=== PATIENT | male | born 1960 | race Caucasian/White ===

== ENCOUNTER → 2018-04-02 16:15 | Outpatient (CLI) | payer BC, SELFPAY ==
--- NOTE | 2018-04-02 16:21 | RAD_ITS ---
STUDY: X-RAY CHEST REASON FOR EXAM: Male, 57 years old. Positive PPD TECHNIQUE: Frontal view of the chest COMPARISON: None. FINDINGS: The lungs are clear. There are no pleural effusions. There is no pneumothorax. The heart is normal in size. The visualized osseous structures are within normal limits. RAD/Chest PA and Lateral IMPRESSION: Clear lungs. Electronically Signed: Mike Burroughs, at 19:44 EDT Tel , Service support ,
[2018-04-02 18:20] LABS: T4 Free Direct 1.05 ng/dL (0.76-1.46); Thyroid Stim Hormone (TSH) 1.82 uIU/mL (0.358-3.74)
== END ==
PROVIDERS: Family Provider Family Medicine; PCP Family Medicine; Visit Provider Family Medicine
DX: E04.1 Nontoxic single thyroid nodule (principal); R76.11 Nonspecific reaction to tuberculin skin test without active tuberculosis
CPT/HCPCS: 36415; 71046; 84439; 84443

== ENCOUNTER → 2018-04-04 14:58 | Outpatient (CLI) | payer BC, SELFPAY ==
--- NOTE | 2018-04-04 15:04 | US_ITS ---
STUDY: THYROID ULTRASOUND REASON FOR EXAM: Male, 57 years old. NODULE FELT BY DOCTOR HX OF POSITIVE PPD TECHNIQUE: Ultrasound evaluation of the thyroid was performed with real-time and static gallegos-scale imaging. COMPARISON: None. FINDINGS: RIGHT LOBE: The right lobe of the thyroid gland measures 4.1x1.5x1.6 cm. There is a homogeneous echotexture. There are no demonstrated solid, cystic or complex lesions. LEFT LOBE: The left lobe of the thyroid gland measures 4x1.5x2.1 cm. There is a homogeneous echotexture. There are no demonstrated solid, cystic or complex lesions. ISTHMUS: The isthmus measures 4mm. US/Thyroid IMPRESSION: Normal ultrasound examination of the thyroid. No visualized nodules were Electronically Signed: Javon Owens MD at 16:15 EDT , Service support ,
== END ==
PROVIDERS: Family Provider Family Medicine; PCP Family Medicine; Visit Provider Family Medicine
DX: E04.1 Nontoxic single thyroid nodule (principal)
CPT/HCPCS: 76536

== ENCOUNTER → 2018-05-20 06:00 | Outpatient (CLI) | payer BC, SELFPAY ==
[2018-05-20 06:08] LABS: Bacteria 0 SEEN /hpf (None Seen); Mucous, Urine 0 SEEN /hpf (<or=2+); Red Blood Cells-Urine 0 SEEN /hpf (0-5); White Blood Cells 0 SEEN /hpf (0-5)
[2018-05-20 07:05] LABS: Color, Urine Yellow (Yellow); Glucose, Dipstick Normal (Normal); Ketone-Dipstick Negative (Negative); Leukocyte Esterase-Dipstick Negative /ul (Negative); Nitrite-Dipstick Negative (Negative); Occult Blood-Urine 10 /ul (Negative); Protein-Dipstick Negative (Negative); Urine Bilirubin Dipstick Negative (Negative); Urine Clarity Clear (Clear); Urine Urobilinogen Normal (Normal)
[2018-05-20 07:12] LABS: Squamous Epithelial Cells - UA 0-5 SEEN /hpf (0-5)
[2018-05-20 07:42] LABS: ALB/GLOB Ratio 1.2 RATIO (0.9-2.4); AST(SGOT) 16 U/L (15-37); Alanine Aminotransfer ALT/SGPT 20 U/L (16-61); Albumin, Serum 3.8 g/dL (3.2-5.0); Alkaline Phosphatase 66 U/L (45-117); Anion Gap 5 (5-15); BUN 18 mg/dL (7-18); BUN/Creat Ratio 17.5 RATIO (10-20); Calcium,Total 8.6 mg/dL (8.5-10.1); Chloride 106 mmol/L (98-107); Cholesterol 191 mg/dL (200); Creatinine, Serum 1.03 mg/dL (0.70-1.30); EST Glomerular Filtration Rate 78 mL/min (>60); Est Glom Filt Rate - Afr Amer 95 mL/min (>60); Globulin 3.3 g/dL (2.2-4.2); Glucose 93 mg/dL (74-106); High Density Lipoprotein 42 mg/dL; PSA,Total - Annual Screen 3.45 ng/mL (0.00-4.00); Potassium 3.8 mmol/L (3.5-5.1); Protein, Total 7.1 g/dL (6.4-8.2); Sodium Level 140 mmol/L (136-145); Thyroid Stim Hormone (TSH) 1.45 uIU/mL (0.358-3.74); Triglycerides 137 mg/dL; Very Low Density Lipoprotein 27 mg/dL (5-40)
[2018-05-20 08:30] LABS: Absolute Lymphocyte Count 1.83 X10^3/ul (0.83-4.51); Absolute Neutrophil Count 2.9 X10^3/uL (2.0-7.7); Basophil# 0.03 X10^3/uL; Basophil% 0.5 % (0-1); Eosinophil# 0.33 X10^3/uL; Eosinophils% 5.9 % (0-5); Hematocrit 41.4 % (40-54); Hemoglobin 13.7 g/dl (13.0-16.5); Lymphocyte # 1.83 X10^3/ul (4.0); Lymphocyte % 32.9 % (19-41); Mean Corp Hgb Conc 33.1 g/gl (32-36); Mean Corpuscular Volume 87.5 fL (80-94); Mean Platelet Vol. 9.5 fl (6.2-12.0); Monocyte# 0.48 X10^3/uL; Monocyte% 8.6 % (0-10); Neutrophil # 2.89 X10^3/uL (2.7-7.7); Neutrophil % 51.9 % (47-70); Platelet Count 210 K/mm3 (150-450); RBC Distribution Width CV 13.7 % (11.6-14.6); RBC Distribution Width SD 43.7 fl (35.1-43.9); Red Blood Count 4.73 M/mm3 (4.6-6.2); White Blood Count 5.6 K/mm3 (4.4-11.0)
[2018-05-20 08:31] LABS: POSITIVE COUNT NO; POSITIVE DIFFERENTIAL NO; POSITIVE MORPHOLOGY NO
== END ==
PROVIDERS: Family Provider Family Medicine; PCP Family Medicine; Visit Provider Family Medicine
DX: Z00.00 Encounter for general adult medical examination without abnormal findings (principal); Z12.5 Encounter for screening for malignant neoplasm of prostate
CPT/HCPCS: 36415; 80053; 80061; 81001; 84153; 84443; 85025; G0103

== ENCOUNTER → 2018-12-04 16:56 | Outpatient (CLI) | payer BC, SELFPAY ==
--- NOTE | 2018-12-04 16:59 | RAD_ITS ---
HISTORY: Pain COMPARISON: None FINDINGS: XR right knee 3 views with weightbearing No fracture or acute disease. Degenerative arthritis with mild to moderate narrowing of the tibiofemoral medial compartment. The lateral joint space compartment and patellofemoral joint space appears preserved. Mild spurring of the intercondylar tibial spines. Mild spurring of the anterior superior margin of the patella at quadriceps insertion. No joint effusion. RAD/Knee 3 Views IMPRESSION: 1. Degenerative arthritis with mild to moderate narrowing of the tibiofemoral medial compartment. 2. No acute disease, right knee. at 0756 Reported and signed by: Chico Claudio MD Electronically Signed: Chico Claudio, at 7:55 EST Tel , Service support ,
--- NOTE | 2018-12-04 16:59 | RAD_ITS ---
HISTORY: Pain COMPARISON: None FINDINGS: XR left knee 3 views with weightbearing No fracture or acute disease. Degenerative arthritis with mild narrowing of the tibiofemoral medial compartment. The lateral compartment and patellofemoral joint space appear preserved. Mild spurring of the anterior spare margin of the patella at quadriceps insertion. No joint effusion. RAD/Knee 3 Views IMPRESSION: 1. Mild degenerative changes. 2. No acute disease, left knee. at 0800 Reported and signed by: Chico Claudio MD Electronically Signed: Chico Claudio, at 7:58 EST Tel , Service support ,
== END ==
PROVIDERS: Family Provider Family Medicine; PCP Family Medicine; Referring Provider Family Medicine; Visit Provider Family Medicine
DX: M17.0 Bilateral primary osteoarthritis of knee (principal)
CPT/HCPCS: 73562

== ENCOUNTER → 2020-04-15 08:36 | Outpatient (CLI) | payer BC, SELFPAY ==
[2020-04-15 10:01] LABS: Absolute Lymphocyte Count 1.43 X10^3/uL (0.83-4.51); Absolute Neutrophil Count 2.6 X10^3/uL (2.0-7.7); Basophil# 0.05 X10^3/uL; Basophil% 1.1 % (0-1); Eosinophil# 0.22 X10^3/uL; Eosinophils% 4.7 % (0-5); Hematocrit 41.3 % (40-54); Hemoglobin 13.4 g/dL (13.0-16.5); Lymphocyte # 1.43 X10^3/ul (4.0); Lymphocyte % 30.3 % (19-41); Mean Corp Hgb Conc 32.4 g/dL (32-36); Mean Corpuscular Hgb 29.4 pg (27.0-32.0); Mean Corpuscular Volume 90.6 fL (80-94); Mean Platelet Vol. 9.9 fl (6.2-12.0); Monocyte# 0.44 X10^3/uL; Monocyte% 9.3 % (0-10); NRBC Flagged by Analyzer 0 % (0-5); Neutrophil # 2.57 X10^3/uL (2.7-7.7); Neutrophil % 54.4 % (47-70); Platelet Count 227 K/mm3 (150-450); RBC Distribution Width CV 13.3 % (11.6-14.6); RBC Distribution Width SD 43.8 fl (35.1-43.9); Red Blood Count 4.56 M/mm3 (4.6-6.2); White Blood Count 4.7 K/mm3 (4.4-11.0)
[2020-04-15 10:25] LABS: ALB/GLOB Ratio 1.2 RATIO (0.9-2.4); AST(SGOT) 10 U/L (15-37); Alanine Aminotransfer ALT/SGPT 22 U/L (16-61); Alkaline Phosphatase 75 U/L (45-117); Anion Gap 6 (5-15); BUN 13 mg/dL (7-18); BUN/Creat Ratio 12.9 RATIO (10-20); Calcium,Total 8.9 mg/dL (8.5-10.1); Chloride 107 mmol/L (98-107); Cholesterol 193 mg/dL (200); Creatinine, Serum 1.01 mg/dL (0.70-1.30); EST Glomerular Filtration Rate 80 mL/min (>60); Est Glom Filt Rate - Afr Amer 96 mL/min (>60); Globulin 3.2 g/dL (2.2-4.2); Glucose 82 mg/dL (74-106); High Density Lipoprotein 51 mg/dL; PSA,Total - Annual Screen 4.81 ng/mL (0.00-4.00); Protein, Total 7.2 g/dL (6.4-8.2); Sodium Level 140 mmol/L (136-145); Thyroid Stim Hormone (TSH) 1.42 uIU/mL (0.358-3.74); Triglycerides 108 mg/dL; Very Low Density Lipoprotein 22 mg/dL (5-40)
== END ==
PROVIDERS: PCP Family Medicine; Referring Provider Family Medicine; Visit Provider Family Medicine
DX: Z00.00 Encounter for general adult medical examination without abnormal findings (principal); Z12.5 Encounter for screening for malignant neoplasm of prostate
CPT/HCPCS: 36415; 80053; 80061; 84153; 84443; 85025; G0103

== ENCOUNTER → 2020-11-21 13:19 | Outpatient (CLI) | payer BC, SELFPAY | PROVIDERS: PCP Family Medicine; Referring Provider Urology; Visit Provider Urology | DX: R97.20 Elevated prostate specific antigen [PSA] (principal) | CPT/HCPCS: 36415; 84153 ==

== ENCOUNTER → 2020-12-22 | Outpatient (CLI) | payer BC, SELFPAY ==
--- NOTE | 2020-12-22 | IMM_PTH ---
PATIENT: POOJA SOUTH LOC: [facility] U#:[id number] AGE/SX: 60/M ROOM: RE12/22/[address]: Dr. Hai Pizarro MD : 1960 BED: DIS: 12/22/2020 SPEC #: [id number] RECD: 12/23/20 12:32 STATUS: MAURICIO REQ #: [id number] HANG: 12/22/20 00:[address]: Hai Pizarro DEPT: IMMUNOHISTOCHEMISTRY RECD BY: Margo Rasmussen ENTERED: 12/23/20 12:34 SP TYPE: IMMUNO OTHR DR: Dr. Gustavo Garcia MD Tissues: A - PROSTATE RIGHT C - PROSTATE RIGHT D - PROSTATE LEFT F - PROSTATE LEFT Procedures: 34BE12 (add) P40 (add) 34BE12 (initial) [facility]YS[facility] [address] [address] SPECIMEN INFORMATION: Tissue Source: A - Right apex, C - Right base, D - Left apex, F - Left base Clinical Info: Elevated PSA Specimen Number: [id number] A, C, D & F CPT code: 05134, 24690 x7 METHODOLOGY: Deparaffinized sections of prefer/formalin-fixed tissue or PAP/DQ stained slides are incubated with monoclonal/polyclonal antibodies/oligonucleotide probes. Localization is made via biotin free immunoperoxidase method. Appropriate controls are performed and reacted as expected. Results on target cell population are indicated in the following table: RESULTS: ANTIBODY / CLONE RESULT Block A 34BE12 (34BE12) positive P40 (BC28) positive Block C 34BE12 (34BE12) negative P40 (BC28) negative Block D 34BE12 (34BE12) positive P40 (BC28) positive Block F 34BE12 (34BE12) negative P40 (BC28) negative These tests were developed and their performance characteristics determined by [facility]. They may not have been cleared or approved by the U.S. Food and Drug Administration. The FDA has determined that such clearance or approval is not necessary. The above immunohistochemical/dualISH markers are ordered and reviewed by the Pathologist. INTERPRETATION: A. Right prostate, apex, core biopsy: Benign prostatic tissue. C. Right prostate, base, core biopsy: Focal atypical small acinar proliferation. D. Left prostate, apex, core biopsy: Benign prostatic tissue. F. Left prostate, base, core biopsy: Adenocarcinoma. AM:brenda 12/26/2020
--- NOTE | 2020-12-22 08:00 | PROSBIL_PTH ---
PATIENT: POOJA SOUTH LOC: [facility] U#:[id number] AGE/SX: 60/M ROOM: RE12/22/[address]: Dr. Hai Pizarro MD : 1960 BED: DIS: 12/22/2020 SPEC #: [id number] RECD: 12/22/20 12:21 STATUS: MAURICIO RERamon #: [id number] HANG: 12/22/20 08:[address]: Hai Pizarro DEPT: SURGICAL PATHOLOGY RECD BY: Mona De La Rosa ENTERED: 12/22/20 13:06 SP TYPE: PROST BX JAMI DR: Dr. Gustavo Garcia MD Tissues: A - PROSTATE RIGHT B - PROSTATE RIGHT C - PROSTATE RIGHT D - PROSTATE LEFT E - PROSTATE LEFT F - PROSTATE LEFT Procedures: PROSTATE BX HEADER OPERATION: Prostate biopsy PRE-OP DIAGNOSIS: Elevated PSA TISSUE SUBMITTED: A - Right apex, B - Right mid, C - Right base, D - Left apex, E - Left mid, F - Left base MICROSCOPIC DIAGNOSIS A. Right prostate, apex, core biopsy: Focal glandular atrophy. See comment. B. Right prostate, mid, core biopsy: Focal high-grade prostatic intraepithelial neoplasia (HGPIN). Minimal chronic inflammation. C. Right prostate, base, core biopsy: Focal atypical acinar proliferation. See comment. D. Left prostate, apex, core biopsy: Focal high-grade prostatic intraepithelial neoplasia (HGPIN). See comment. E. Left prostate, mid, core biopsy: Focal high-grade prostatic intraepithelial neoplasia (HGPIN). F. Left prostate, base, core biopsy: Adenocarcinoma. Lynnette grade: 6 (3+3) Cores involved: 1 out of 2 cores Tissue involved: <5% Greatest tumor length: 1.5 mm See comment. AM:brenda 12/23/2020 COMMENT A, C, D & F - Immunohistochemistry ([id number]) supports the above diagnosis. MICROSCOPIC DESCRIPTION Slides are reviewed. GROSS DESCRIPTION A - Received is one container designated prostate, right apex. The specimen consists of one elongated fragment of light gomez-white soft tissue measuring 1.5 cm in length and 0.1 cm in diameter. The specimen is totally submitted in one cassette. B - Received is one container designated prostate, right mid. The specimen consists of two elongated fragments of light gomez-white soft tissue each measuring 1 cm in length and 0.1 cm in diameter. The specimen is totally submitted in one cassette. C - Received is one container designated prostate, right base. The specimen consists of two elongated fragments of light gomez-white soft tissue each measuring 1.5 cm in length and 0.1 cm in diameter. The specimen is totally submitted in one cassette. D - Received is one container designated prostate, left apex. The specimen consists of one elongated fragment of light gomez-white soft tissue measuring 1 cm in length and 0.1 cm in diameter. The specimen is totally submitted in one cassette. E - Received is one container designated prostate, left mid. The specimen consists of two elongated fragments of light gomez-white soft tissue each measuring 1.5 cm in length and 0.1 cm in diameter. The specimen is totally submitted in one cassette. F - Received is one container designated prostate, left base. The specimen consists of two elongated fragments of light gomez-white soft tissue each measuring 1.5 cm in length and 0.1 cm in diameter. The specimen is totally submitted in one cassette. / AM:brenda 12/22/20 TC:0 CPT: 55859 x6
== END | disposition home or self-care (01) ==
LOC: LABSPEC 12:29
PROVIDERS: PCP Family Medicine; Referring Provider Urology; Visit Provider Urology
DX: R97.20 Elevated prostate specific antigen [PSA] (principal)
CPT/HCPCS: 88305; 88341; 88342; G0416

== ENCOUNTER → 2021-01-06 10:24 | Outpatient (CLI) | payer BC, SELFPAY ==
--- NOTE | 2021-01-06 10:26 | NM_ITS ---
CLINICAL: 60-year-old male with reported history of recent diagnosis of primary prostate carcinoma. WHOLE BODY 99m Tc MDP RADIONUCLIDE BONE SCINTIGRAPHY COMPARISON: None available FINDINGS: Following the intravenous administration of presumably 25.0 mCi of 99m Tc MDP via the the apparent right antecubital fossa, whole body bone images reveal: 1. Increased radiopharmaceutical concentration is identified in the acromioclavicular compartment of the right shoulder, the visualized right wrist, both hands, medial tibial compartment of the bilateral knees. 2. The remaining skeletal structures are scintigraphically unremarkable with normal-appearing renal images and urinary bladder activity identified. NM/Bone Scan Whole Body IMPRESSION: 1. The increase in radiopharmaceutical concentration identified in the right shoulder, right wrist, bilateral hands, right and left knees is most consistent with degenerative arthritis. 2. There is no definitive typical scintigraphic evidence of diffuse axial skeletal metastatic disease on the current examination. Electronically Signed: Farhat Romo DO at 8:08 EST Tel , Service support ,
== END ==
LOC: NM 10:25
PROVIDERS: PCP Family Medicine; Referring Provider Urology; Visit Provider Urology
DX: C61 Malignant neoplasm of prostate (principal)
CPT/HCPCS: 78306

== ENCOUNTER → 2021-01-20 17:26 | Outpatient (CLI) | payer BC, SELFPAY ==
--- NOTE | 2021-01-20 17:34 | MRI_ITS ---
STUDY: MR PELVIS WITH AND WITHOUT CONTRAST (PROSTATE) REASON FOR EXAM: Male, 60 years old. Prostate cancer TECHNIQUE: Standardized multiparametric prostate MRI with T1, T2, DWI/ADC sequences were obtained in 3 orthogonal planes, and dynamic contrast enhancement sequences. 17 ml of dotarem contrast material was administered intravenously for the contrast portion of the examination. COMPARISON: Bone scan 01/06/2021 FINDINGS: The prostate volume measures 35 mm3. The contours of the prostate gland are smooth. There is not significant mass effect on the bladder base. The transition zone is heterogenous. PI-RADS DWI score 4 - Focal markedly hypointense on ADC and markedly hyperintense on high b-value DWI; < 1.5 cm on axial. PI-RADS T2W score 4 - Non-circumscribed (left anterior mid transitional zone), homogeneous, moderately hypointense, and <1.5 cm (1.0 x 1.1 cm) in greatest dimension. Contrast enhancement (+) Focal, earlier or contemporaneous with enhancement of adjacent normal prostatic tissues, and corresponding to a suspicious finding on T2WI and/or DWI. The peripheral zone is heterogenous. PI-RADS DWI score 2 - Linear/wedge shaped hypointense on ADC and/or linear/wedge shaped hyperintense on high b-value DWI. PI-RADS T2W score 2 - Linear, wedge-shaped, or diffuse mild hypointensity, usually with indistinct margin. Contrast enhancement no early or contemporaneous enhancement; or diffuse multifocal enhancement NOT corresponding to a focal finding on T2W and/or DWI or focal enhancement responding to a lesion demonstrating features of BPH onT2WI (including features of extruded BPH in the PZ). The seminal vesicles demonstrate normal margins and T2 signal pattern. No mass lesion or invasion depicted. The rectoprostatic angles are normal. Urinary bladder is normal without wall thickening. The vascular structures of the are normal. The visualized hollow viscus structures are normal. Small fat-containing left inguinal hernia. No bone marrow edema or mass lesion depicted. MRI/Pelvis W/WO Contrast IMPRESSION: 1. PIRADS v2.1 2019 -- 4 - High (clinically significant cancer is likely). Electronically Signed: Chente Lim MD ([place]) at 14:37 EST , Service support ,
== END ==
PROVIDERS: PCP Family Medicine; Referring Provider Radiology Radiation Oncology; Visit Provider Radiology Radiation Oncology
DX: C61 Malignant neoplasm of prostate (principal)
CPT/HCPCS: 72197

== ENCOUNTER 2021-02-15 07:21 | Day surgery (SDC) | payer BC, SELFPAY ==
[2021-02-15] VITALS (7 sets, daily range): BP systolic 109–129; BP diastolic 73–90; PULSE 51–57; RESP 16; TEMP 36.1–37.1; O2SAT 94–100; BMI 28.5
--- NOTE | 2021-02-15 07:44 | PCM.HP.STD ---
Problem List (1) Prostate cancer Status: Acute History of Present Illness Date of Admission: 02/15/21 Chief Complaint: Prostate cancer The patient is a 60 year old male with prostate cancer plan to place gold markers and spacer gel matrix. Past Medical History Allergies No Known Allergies Allergy (Verified 02/09/21 10:03) Home Medications: Ambulatory Orders Medication Instructions Recorded Acetaminophen [Tylenol Extra 500 - 1,000 mg PO Q6H PRN PRN 02/09/21 Strength] Aspirin E.C. [Ecotrin] 325 mg PO Q4H PRN PRN 02/09/21 Meloxicam [Mobic] 15 mg PO PRN PRN 02/09/21 Surgical History: no surgical history Smoking Status: Never smoker Tobacco Use: Non-smoker Review of Systems Constitutional: Denies: Chills, Fever, Weight Change HEENT: Denies: Head Aches, Sinus Congestion, Sinus Drainage Cardiovascular: Denies: Chest Pain, Palpitations Respiratory: Denies: Cough, Shortness of breath at rest, Sputum production Gastrointestinal: Denies: Abdominal Pain, Nausea, Vomiting Genitourinary: Denies: Dysuria Musculoskeletal: Denies: Joint Pain, Joint Tenderness Skin: Denies: Rash, Wounds Neurological: Denies: Numbness, Tingling, Focal weakness Psychiatric: Denies: Anxiety, Depression, Homicidal Ideations, Suicidal Ideations Hematologic/ Lymphatic: Denies: Easy Bruising, Easy Bleeding VTE Information - Inpt Only VTE Present on Admission: No - Physical Exam Vitals/I&O's: Vital Signs Temp Pulse Resp BP Pulse Ox 98.8 F 57 L 16 129/90 H 100 02/15/21 07:41 02/15/21 07:41 02/15/21 07:41 02/15/21 07:41 02/15/21 07:41 Oxygen Delivery Method Room Air Weight: 85 kg Body Mass Index (BMI) 28.5 General: Alert, Oriented x3, Cooperative HEENT: Atraumatic, PERRLA, EOMI, Normocephalic Neck: Supple, No JVD, Negative Carotid Bruits Lungs: Clear to auscultation, Normal air movement Cardiovascular: Regular rate, No murmurs Abdomen: Bowel Sounds Present, Soft, Non Tender Extremities: No edema, Capillary Refill Less than 3 Seconds Skin: No rashes, No breakdown Musculoskeletal: No Tenderness to Palpation of Joints or Extremities Neurological: Cranial nerves II-XII grossly intact Psych/Mental Status: Normal Affect, Appropriate Microbiology Past 72 Hours 02/14/21 16:18 Interface Orders SARS-CoV-2 Antigen (Rapid) - Final Current Medications Cefazolin Sodium 2 gm/ Sodium (Chloride) 110 mls @ 150 mls/hr IV PREOP ONE Stop: 02/15/21 09:53 Assessment/Plan All Active Problems Prostate cancer (Acute) Plan to proceed with placement of gold markers and spacer gel matrix
--- NOTE | 2021-02-15 07:48 | DCINST_ITS ---
Discharge Diet: Light diet - advance as tolerated Discharge Activity: Return to Normal Activity Allergies/Adverse Reactions: Allergies No Known Allergies Allergy (Verified 02/09/21 10:03) Medications to take at Discharge Acetaminophen [Tylenol Extra Strength] 500 - 1,000 mg PO Q6H PRN PRN 02/09/21 Aspirin E.C. [Ecotrin] 325 mg PO Q4H PRN PRN 02/09/21 Meloxicam [Mobic] 15 mg PO PRN PRN 02/09/21 Primary Care Physician: Gustavo Garcia MD [Primary Care Provider] - Test Results: Test results from this visit will be discussed in further detail at your follow- up appointment, if applicable. Please Follow Up With: Hai Pizarro MD When: in 2 weeks, please call to make an appointment.
[2021-02-15] MEDS: Lactated Ringers 1,000 ML 100 ML IV (07:58)
[2021-02-15] MEDS: Cefazolin 2 GM in 0.9% Normal Saline 100 ML IV (09:23)
--- NOTE | 2021-02-15 09:44 | PCM.OPRPT ---
Problem List (1) Prostate cancer Status: Acute Report of Operation Date of Procedure: 02/15/21 Pre-Operative Diagnosis: Prostate cancer Post-Operative Diagnosis: Same Surgery/Procedure Performed:: Ultrasound-guided placement of gold fiducial markers and spacer organ at risk gel matrix Description of Surgical Findings:: Patient was taken back to the operating room, after induction of anesthesia, he was placed in dorsolithotomy position. The patient had a bowel prep preoperatively. He was given IV antibiotics preoperatively. He underwent a timeout procedure. He was marked and the procedure was reviewed with the operating room staff. Once he was in dorsolithotomy position. The genitals and perineum were prepped and draped in the usual sterile fashion. I then introduced a biplanar ultrasound probe into the rectum and performed ultrasonography on the prostate. The prostate seminal vesicles, the base, the mid prostate, the apex were identified. The Denonvilliers' fascia was also identified. I first advanced the first marker in the patient's right side to the mid prostate and deployed the first research and development specialist. The second research and development specialist was then advanced under ultrasound guidance to the patient's left mid prostate . And finally the third research and development specialist was advanced of the prostate left apex and deployed under ultrasound guidance. All 3 markers were confirmed to be present within the prostate on ultrasonography. I then introduced a biplanar ultrasound probe into the rectum and performed ultrasonography and identified the Denonvilliers' fascia the prostate mid base and apex and seminal vesicles. The spacer gel mix was then prepared on the back table per manufactures instruction. Under ultrasound guidance in the midline perineum a bevel needle down we advanced through the perineum below the prostate into the space of Denonvilliers' fascia. This space which could be identified by ultrasound with a bright white layer between the prostate and the rectum. I then injected a puff of normal saline to identify the space further. After I confirmed that the needle was in the correct space in the mid prostate and the space of Denonvilliers' fascia between the rectum and the prostate. Then over the course of 15 seconds the gel matrix was injected slowly there was nice separation between the prostate and the rectum at the gel matrix was injected. The position of the gel matrix was confirmed by ultrasound. Then the injection needle was removed intact. Patient's perineum was cleaned patient was taken out of stirrups and then taken back to the PACU in good condition. Type of Anesthesia:: General Drains: none - Admit VTE Documentation VTE Present on Admission: No VTE Mechan Device Prophylaxis: SCD's
== END 2021-02-15 11:15 | disposition home or self-care (01) ==
LOC: SDC 07:22 → AC 07:22
PROVIDERS: PCP Family Medicine; Referring Provider Urology; Visit Provider Urology
PROC: (CPT 55874; principal; 2021-02-15 09:10)
DX: C61 Malignant neoplasm of prostate (principal); Z20.822 Contact with and (suspected) exposure to COVID-19; Z79.82 Long term (current) use of aspirin; Z79.1 Long term (current) use of non-steroidal anti-inflammatories (NSAID)
CPT/HCPCS: 00902; 55874; 55876; 87426; C9803; J7120; J2405

== ENCOUNTER → 2021-02-28 14:24 | Outpatient (CLI) | payer BC, SELFPAY ==
[2021-02-15 07:41] VITALS: BMI 28.5
[2021-02-28 15:21] LABS: Absolute Lymphocyte Count 2.01 X10^3/uL (0.83-4.51); Absolute Neutrophil Count 3.2 X10^3/uL (2.0-7.7); Basophil# 0.06 X10^3/uL; Eosinophil# 0.21 X10^3/uL; Eosinophils% 3.5 % (0-5); Hematocrit 41.6 % (40-54); Hemoglobin 13.8 g/dL (13.0-16.5); Lymphocyte # 2.01 X10^3/ul (4.0); Lymphocyte % 33.7 % (19-41); Mean Corp Hgb Conc 33.2 g/dL (32-36); Mean Corpuscular Hgb 29.7 pg (27.0-32.0); Mean Corpuscular Volume 89.5 fL (80-94); Mean Platelet Vol. 9.8 fl (6.2-12.0); Monocyte# 0.49 X10^3/uL; Monocyte% 8.2 % (0-10); NRBC Flagged by Analyzer 0 % (0-5); Neutrophil # 3.17 X10^3/uL (2.7-7.7); Neutrophil % 53.3 % (47-70); Platelet Count 242 K/mm3 (150-450); RBC Distribution Width CV 13.2 % (11.6-14.6); RBC Distribution Width SD 42.7 fl (35.1-43.9); Red Blood Count 4.65 M/mm3 (4.6-6.2)
[2021-02-28 15:43] LABS: Creatinine, Serum 1.01 mg/dL (0.70-1.30); EST Glomerular Filtration Rate 79 mL/min (>60); Est Glom Filt Rate - Afr Amer 96 mL/min (>60)
== END ==
PROVIDERS: PCP Family Medicine; Referring Provider Radiology Radiation Oncology; Visit Provider Radiology Radiation Oncology
DX: Z01.812 Encounter for preprocedural laboratory examination (principal); C61 Malignant neoplasm of prostate
CPT/HCPCS: 36415; 82565; 84153; 85025

== ENCOUNTER → 2021-03-01 13:46 | Outpatient (CLI) | payer BC, SELFPAY ==
[2021-02-15 07:41] VITALS: BMI 28.5
--- NOTE | 2021-03-01 13:53 | CT_ITS ---
STUDY: CT PELVIS WITH CONTRAST REASON FOR EXAM: Male, 60 years old. ca prostate RADIATION DOSAGE (If Supplied By Facility): CTDIvol = ( 22.27 ) mGy, DLP = ( 1341.89 ) mGycm TECHNIQUE: Transaxial imaging of the pelvis was performed with oral contrast. IV 100ML ISOVUE 300 was administered intravenously. Images were obtained in the prone and supine position. Individualized dose optimization techniques were used for this CT. COMPARISON: 01/20/21 MRI pelvis. FINDINGS: Urinary bladder and ureters contain IV contrast. Prostate mildly enlarged with mild adjacent edema, contain several radiation seeds. Tubular increased density structure in the penis probably a prosthetic. Small left inguinal hernia contains fat but no bowel. No acute osseous abnormality. No obstruction or inflammation of the visualized loops of bowel. Visualized vascular structures unremarkable. 3.0 x 1.9 cm subcutaneous cyst left lateral buttocks. No adenopathy. CT/CT Pelvis W/CONT Therapy IMPRESSION: Mild edema adjacent to a mildly enlarged prostate gland. Electronically Signed: Kaden Billy MD at 6:05 EDT Tel , Service support ,
== END ==
PROVIDERS: PCP Family Medicine; Referring Provider Radiology Radiation Oncology; Visit Provider Radiology Radiation Oncology
DX: C61 Malignant neoplasm of prostate (principal)
CPT/HCPCS: 51600; 72193; Q9967

== ENCOUNTER → 2021-03-31 12:12 | Outpatient (CLI) | payer BC, SELFPAY ==
[2021-02-15 07:41] VITALS: BMI 28.5
[2021-03-31 15:09] LABS: Absolute Lymphocyte Count 1.21 X10^3/uL (0.83-4.51); Absolute Neutrophil Count 2.6 X10^3/uL (2.0-7.7); Basophil# 0.05 X10^3/uL; Basophil% 1.1 % (0-1); Eosinophil# 0.23 X10^3/uL; Hematocrit 41.9 % (40-54); Hemoglobin 13.6 g/dL (13.0-16.5); Lymphocyte # 1.21 X10^3/ul (0.83-4.51); Lymphocyte % 26.5 % (19-41); Mean Corp Hgb Conc 32.5 g/dL (32-36); Mean Corpuscular Hgb 29.3 pg (27.0-32.0); Mean Corpuscular Volume 90.3 fL (80-94); Mean Platelet Vol. 9.9 fl (6.2-12.0); Monocyte# 0.49 X10^3/uL; Monocyte% 10.7 % (0-10); NRBC Flagged by Analyzer 0 % (0-5); Neutrophil # 2.57 X10^3/uL (2.7-7.7); Neutrophil % 56.3 % (47-70); Platelet Count 189 K/mm3 (150-450); RBC Distribution Width CV 13.5 % (11.6-14.6); RBC Distribution Width SD 43.4 fl (35.1-43.9); Red Blood Count 4.64 M/mm3 (4.6-6.2); White Blood Count 4.6 K/mm3 (4.4-11.0)
== END ==
PROVIDERS: PCP Family Medicine; Referring Provider Radiology Radiation Oncology; Visit Provider Radiology Radiation Oncology
DX: C61 Malignant neoplasm of prostate (principal)
CPT/HCPCS: 36415; 85025

== ENCOUNTER → 2021-04-18 08:42 | Outpatient (CLI) | payer BC, SELFPAY ==
[2021-02-15 07:41] VITALS: BMI 28.5
[2021-04-18 10:15] LABS: Absolute Lymphocyte Count 0.72 X10^3/uL (0.83-4.51); Absolute Neutrophil Count 2.8 X10^3/uL (2.0-7.7); Basophil# 0.03 X10^3/uL; Basophil% 0.7 % (0-1); Eosinophil# 0.29 X10^3/uL; Eosinophils% 6.8 % (0-5); Hematocrit 40.9 % (40-54); Hemoglobin 13.4 g/dL (13.0-16.5); Lymphocyte # 0.72 X10^3/ul (0.83-4.51); Lymphocyte % 16.8 % (19-41); Mean Corp Hgb Conc 32.8 g/dL (32-36); Mean Corpuscular Volume 88.5 fL (80-94); Mean Platelet Vol. 9.7 fl (6.2-12.0); Monocyte# 0.44 X10^3/uL; Monocyte% 10.3 % (0-10); NRBC Flagged by Analyzer 0 % (0-5); Neutrophil # 2.77 X10^3/uL (2.7-7.7); Neutrophil % 64.7 % (47-70); Platelet Count 206 K/mm3 (150-450); RBC Distribution Width CV 14.1 % (11.6-14.6); RBC Distribution Width SD 45.1 fl (35.1-43.9); Red Blood Count 4.62 M/mm3 (4.6-6.2); White Blood Count 4.3 K/mm3 (4.4-11.0)
[2021-04-18 10:58] LABS: ALB/GLOB Ratio 1.2 RATIO (0.9-2.4); AST(SGOT) 15 U/L (15-37); Alanine Aminotransfer ALT/SGPT 23 U/L (16-61); Albumin, Serum 3.8 g/dL (3.2-5.0); Alkaline Phosphatase 64 U/L (45-117); Anion Gap 6 (5-15); BUN 17 mg/dL (7-18); BUN/Creat Ratio 18.6 RATIO (10-20); Calcium,Total 8.8 mg/dL (8.5-10.1); Chloride 109 mmol/L (98-107); Creatinine, Serum 0.91 mg/dL (0.70-1.30); EST Glomerular Filtration Rate 89 mL/min (>60); Est Glom Filt Rate - Afr Amer 108 mL/min (>60); Globulin 3.3 g/dL (2.2-4.2); Glucose 104 mg/dL (74-106); Potassium 3.7 mmol/L (3.5-5.1); Protein, Total 7.1 g/dL (6.4-8.2); Sodium Level 140 mmol/L (136-145); T4 Free Direct 0.93 ng/dL (0.76-1.46); Thyroid Stim Hormone (TSH) 1.07 uIU/mL (0.358-3.74)
[2021-04-19 08:54] LABS: Hemoglobin A1c 5.5 % (3.8-5.6)
[2021-04-20 16:59] LABS: Anti-Thyroglobulin AB < 1.0 IU/mL (0.0-0.9); Thyroglobulin, Serum Qt. 8.4 ng/mL (1.4-29.2); Thyroid Peroxidase AB < 9 IU/mL (0-34)
== END ==
PROVIDERS: PCP Family Medicine; Referring Provider Family Medicine; Visit Provider Family Medicine
DX: E04.1 Nontoxic single thyroid nodule (principal); R73.09 Other abnormal glucose
CPT/HCPCS: 36415; 80053; 83036; 84432; 84439; 84443; 85025; 86376; 86800

== ENCOUNTER → 2021-04-25 12:27 | Outpatient (CLI) | payer BC, SELFPAY ==
[2021-02-15 07:41] VITALS: BMI 28.5
--- NOTE | 2021-04-25 12:28 | US_ITS ---
STUDY: THYROID ULTRASOUND REASON FOR EXAM: Male, 60 years old. thyroid nodule TECHNIQUE: Ultrasound evaluation of the thyroid was performed with real-time and static gallegos-scale imaging. COMPARISON: None. FINDINGS: RIGHT LOBE: The right lobe of the thyroid gland measures 4.3 x 1.4 x 1.7 cm. There is a homogeneous echotexture. There are no demonstrated solid, cystic or complex lesions. LEFT LOBE: The left lobe of the thyroid gland measures 3.9 x 1.3 x 1.2 cm. There is a homogeneous echotexture. There are no demonstrated solid, cystic or complex lesions. ISTHMUS: The isthmus measures 3 mm . The regional lymph nodes are normal. US/Thyroid IMPRESSION: No evidence of underlying thyroid nodule. Electronically Signed: Sonny Cedeño DO at 13:04 EDT , Service support ,
== END ==
PROVIDERS: PCP Family Medicine; Referring Provider Family Medicine; Visit Provider Family Medicine
DX: E04.1 Nontoxic single thyroid nodule (principal)
CPT/HCPCS: 76536

== ENCOUNTER → 2021-08-22 12:24 | Outpatient (CLI) | payer BC, SELFPAY | PROVIDERS: PCP Family Medicine; Referring Provider Urology; Visit Provider Urology | DX: R97.20 Elevated prostate specific antigen [PSA] (principal) | CPT/HCPCS: 36415; 84153 ==

== ENCOUNTER 2022-02-19 12:40 | Outpatient (CLI) | payer BC, SELFPAY | END 2022-02-19 23:59 | disposition home or self-care (01) | PROVIDERS: PCP Family Medicine; Visit Provider Urology | DX: C61 Malignant neoplasm of prostate (principal) | CPT/HCPCS: 36415; 84153 ==

== ENCOUNTER → 2022-08-22 | Outpatient (CLI) | payer BC, SELFPAY ==
[2022-08-22 17:31] LABS: PSA,Total- Diagnostic 1.77 ng/mL (0.0-4.0)
== END | disposition home or self-care (01) ==
LOC: LAB 16:26
PROVIDERS: PCP Family Medicine; Visit Provider Urology
DX: C61 Malignant neoplasm of prostate (principal)
CPT/HCPCS: 36415; 84153

== ENCOUNTER → 2023-02-21 | Outpatient (CLI) | payer BC, SELFPAY ==
[2023-02-21 18:50] LABS: PSA,Total- Diagnostic 1.12 ng/mL (0.0-4.0)
== END | disposition home or self-care (01) ==
LOC: MTLAB 16:32
PROVIDERS: PCP Family Medicine; Referring Provider Registered Nurse; Visit Provider Registered Nurse
DX: C61 Malignant neoplasm of prostate (principal)
CPT/HCPCS: 36415; 84153

== ENCOUNTER → 2023-06-04 | Outpatient (CLI) | payer BC, SELFPAY ==
--- NOTE | 2023-06-04 16:10 | RAD_ITS ---
EXAM: XR RIGHT SHOULDER COMPLETE, 2 OR MORE VIEWS CLINICAL INDICATION: Right shoulder injury TECHNIQUE: Two or more views of the right shoulder. COMPARISON: No relevant prior studies available. FINDINGS: BONES/JOINTS: Unremarkable. No acute fracture. No subluxation. Normal alignment. Preservation of the joint space. No sclerotic or destructive changes observed. SOFT TISSUES: Unremarkable. No soft tissue swelling or gas. No radiopaque foreign body. RAD/Shoulder min 2 Views IMPRESSION: Negative right shoulder x-rays. Electronically Signed: Alejandro Delvalle MD at 22:32 EDT ,
== END | disposition home or self-care (01) ==
LOC: MTRAD 16:08
PROVIDERS: PCP Family Medicine; Referring Provider Family Medicine; Visit Provider Family Medicine
DX: S49.91XA Unspecified injury of right shoulder and upper arm, initial encounter (principal); X58.XXXA Exposure to other specified factors, initial encounter
CPT/HCPCS: 73030

== ENCOUNTER → 2023-08-30 | Outpatient (CLI) | payer BC, SELFPAY ==
[2023-08-30 17:35] LABS: PSA,Total- Diagnostic 1.22 ng/mL (0.0-4.0)
== END | disposition home or self-care (01) ==
LOC: LAB 16:31
PROVIDERS: PCP Family Medicine; Referring Provider Registered Nurse; Visit Provider Registered Nurse
DX: C61 Malignant neoplasm of prostate (principal)
CPT/HCPCS: 36415; 84153

== ENCOUNTER → 2024-02-18 | Outpatient (CLI) | payer BC, SELFPAY ==
--- NOTE | 2024-02-18 12:59 | EKG12_ITS ---
Test Reason : PREOP Blood Pressure : / mmHG Vent. Rate : 053 BPM Atrial Rate : 053 BPM P-R Int : 160 ms QRS Dur : 084 ms QT Int : 430 ms P-R-T Axes : 052 013 041 degrees QTc Int : 403 ms Sinus bradycardia with Premature atrial complexes in a pattern of bigeminy Otherwise normal ECG Confirmed by Alejandro Torres ([id number]), staff editor DAVID PARKER ([id number]) on 02/19/2024 9:42:49 AM Referred By: Bruce Sarmiento Confirmed By:Alejandro Torres
[2024-02-18 13:38] LABS: Absolute Lymphocyte Count 1.38 X10^3/uL (0.83-4.51); Absolute Neutrophil Count 3.2 X10^3/uL (2.0-7.7); Basophil# 0.03 X10^3/uL; Basophil% 0.6 % (0-1); Eosinophil# 0.09 X10^3/uL; Eosinophils% 1.8 % (0-5); Hematocrit 39.3 % (40-54); Hemoglobin 13.1 g/dL (13.0-16.5); Lymphocyte # 1.38 X10^3/ul (0.83-4.51); Lymphocyte % 27.2 % (19-41); Mean Corp Hgb Conc 33.3 g/dL (32-36); Mean Corpuscular Hgb 29.8 pg (27.0-32.0); Mean Corpuscular Volume 89.3 fL (80-94); Mean Platelet Vol. 9.4 fl (6.2-12.0); Monocyte# 0.38 X10^3/uL; Monocyte% 7.5 % (0-10); NRBC Flagged by Analyzer 0 % (0-5); Neutrophil # 3.19 X10^3/uL (2.7-7.7); Neutrophil % 62.7 % (47-70); Platelet Count 233 K/mm3 (150-450); RBC Distribution Width CV 13.7 % (11.6-14.6); RBC Distribution Width SD 44.6 fl (35.1-43.9); White Blood Count 5.1 K/mm3 (4.4-11.0)
[2024-02-18 13:57] LABS: Hemoglobin A1c 5.3 % (3.8-5.6)
[2024-02-18 14:06] LABS: Anion Gap 7 (5-15); BUN 12 mg/dL (7-18); BUN/Creat Ratio 12.8 RATIO (10-20); Calcium,Total 9.3 mg/dL (8.5-10.1); Chloride 106 mmol/L (98-107); Creatinine, Serum 0.94 mg/dL (0.70-1.30); EST Glomerular Filtration Rate 86 mL/min (>60); Est Glom Filt Rate - Afr Amer 104 mL/min (>60); Glucose 101 mg/dL (74-106); Sodium Level 140 mmol/L (136-145)
== END | disposition home or self-care (01) ==
PROVIDERS: PCP Family Medicine; Referring Provider Physician Assistant; Visit Provider Physician Assistant
DX: Z01.810 Encounter for preprocedural cardiovascular examination (principal)
CPT/HCPCS: 36415; 80048; 83036; 85025; 93005

== ENCOUNTER → 2024-02-20 | Outpatient (CLI) | payer BC, SELFPAY ==
[2024-02-20 17:30] LABS: PSA,Total- Diagnostic 1.04 ng/mL (0.0-4.0)
== END | disposition home or self-care (01) ==
LOC: LAB 16:25
PROVIDERS: PCP Family Medicine; Visit Provider Nurse Practitioner
DX: C61 Malignant neoplasm of prostate (principal)
CPT/HCPCS: 36415; 84153

== ENCOUNTER → 2024-09-16 | Outpatient (CLI) | payer BC, SELFPAY ==
[2024-09-16 18:20] LABS: PSA,Total- Diagnostic 0.57 ng/mL (0.0-4.0)
--- OUTSIDE RECORDS SUMMARY | 2024-09-16 19:24 | XMS RPT_ITS | CCD ---
Author Organization [facility] Inform ion Partnership [facility] Care Team Providers Care Soaker Soda Worker Name Role Phone Unavailable Primary Care Provider STAR Rodriguez Primary Care Unavailable Medications Current Medications Medication Drug Class(es) Dates Sig (Normalized) Sig (Original) permethrin 50 mg/ml topical cream (1 source) Pyrethroid Start: 06-22-2022 End: 06-22-2022 permethrin (ELIMITE) 5 % cream Apply 1 application to affected area one time only for 1 dose. massage into skin from neck to feet, leave on 8-12hrs, wash off; Info: repeat 2wks if live mites persist. Itching may persist after effective treatment. 60 g 1 06/22/2022 06/22/2022 Active Comment on above: Apply 1 application to affected area one time only for 1 dose. massage into skin from neck to feet, leave on 8-12hrs, wash off; Info: repeat 2wks if live mites persist. Itching may persist after effective treatment. predniSONE 20 mg oral tablet (1 source) Start: 06-22-2022 End: 06-27-2022 take 2 tablets by mouth once daily predniSONE (DELTASONE) 20 mg tablet Take 2 tablets by mouth once daily for 5 days. 10 tablet 0 06/22/2022 06/27/2022 Active Comment on above: Take 2 tablets by [facility] once daily for 5 days. Completed/Discontinued Medications Medication Drug Class(es) Dates Sig (Normalized) Sig (Original) hydrOXYzine hydrochloride 25 mg oral tablet (1 source) Antihistamine Start: 06-22-2022 take 25-50 mg by mouth every eight hours as needed hydrOXYzine HCl (ATARAX) 25 mg tablet Take 1-2 tablets by mouth three times daily as needed for itching/rash. 30 tablet 0 06/22/2022 Active Comment on above: Take 1-2 tablets by mouth three times daily as needed for itching/rash. 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 Subjective Mike South is a 63 year old male. HPIsore throat since Saturday, fever 100, chills, and the left eye crusted started today. Slight cough and congestion. Using OTC pain relievers and cough/cold medication. Review of Systems Constitutional: Positive for chills and fever. HENT: Positive for congestion, sinus pressure and sore throat. Eyes: Positive for discharge and redness. Neurological: Positive for headaches. Objective BP 134/72 Pulse 94 Temp 36.8 ?C (98.3 ?F) Resp 21 Wt 75.8 kg (167 lb) SpO2 97% Physical Exam HENT: Right Ear: Tympanic membrane normal. Left Ear: External ear normal. Nose: Congestion present. Mouth/Throat: Mouth: Mucous membranes are moist. Pharynx: Posterior oropharyngeal erythema present. Eyes: General: Left eye: Discharge present. Cardiovascular: Rate and Rhythm: Normal rate. Pulmonary: Breath sounds: Normal breath sounds. Skin: General: Skin is warm and moist. Neurological: Mental Status: He is alert. Assessment and Plan ASSESSMENT/PLAN: 1. Sore throat - ICD9: 462, ICD10: J02.9 (primary diagnosis) - COVID AND INFLUENZA A/B AND RSV NAAT, ROUTINE Will notify patient of test results. 2. Acute bacterial conjunctivitis of left eye - ICD9: 372.03, ICD10: H10.32 Bacterial - see medication orders - course and contagiousness issues discussed, including hand washing. - Instructed to call if high fever, development of periorbital redness or swelling, eye pain, visual changes, concerns or if symptoms persist. Estelita Rollins APRN.GINI Medical Decision Making: Problems: Low: Acute, uncomplicated illness or injury Data: Unique test(s) ordered: 3+ Risk: Low: Low risk from testing/treatment Moderate: Drug management Medical Decision Making Level: 4 - Moderate Allergies As of Date: 12/04/2023 (Not on File) Date Reviewed: 12/04/2023 Reviewed by: Jordyn Nickerson MA - Fully Assessed Reason for Visit: Sore Throat [200] Cmt: Fever, chills, body aches, possible pink eye in left x 6 days Primary Visit Diagnosis:Sore throat [J02.9] Other Visit Diagnosis:Acute bacterial conjunctivitis of left eye [H10.32] Order(s):trimethoprim -polymyxin (POLYTRIM) 10,000 unit- 1 mg/mL ophthalmic solutionUse 1 Drop in the left eye every 4 hours for 5 days.Disp: 1.5 mLRfl: 0 COVID AND INFLUENZA A/B AND RSV NAAT, ROUTINE [SQCVFLRS] Order #: [id number]. #:[id number] Prescriptions as of 12/04/2023 - trimethoprim-polymyxi n (POLYTRIM) 10,000 unit- 1 mg/mL ophthalmic solution Use 1 Drop in the left eye every 4 hours for 5 days. Problem List As Of Date: 12/04/2023 (None) Prescriptions ordered this encounter Disp Refills Start End POLYMYXIN B SULFATE 10,000 UNIT-TRIM* 1.5 * 0 12/04/2023 12/09/2023 Route: LEFT EYE Sig: Use 1 Drop in the left eye every 4 hours for 5 days. Medications Discontinued During This Encounter Prescriptions - hydrOXYzine HCl (ATARAX) 25 mg tablet (Discontinued) Reported on 12/04/2023 Encounter Status:Closed by ESTELITA ROLLINS on 12/04/23 [facility] 12-04-2023 CNPN Telephone (UCWSTR) BRANNONMIKE ALMANZA ([id number]) 1960 M Date Time Provider Department 12/04/23 KEON GUTIÉRREZ [facility] During your visit today, we recorded the following information about you: Keon Gutiérrez APRN.[employer] SALES MANAGER 12/04/2023 6:44 PM Signed COVID-19, influenza A, and influenza B PCR test are negative. Continue supportive therapies as discussed during visit. Follow-up with PCP if symptoms are not improving. Keon Gutiérrez APRN.Jordyn Moreno MA 12/04/2023 8:02 PM Signed Pt was notified of the results. Pt verbalized understanding. Jordyn Nickerson MA Allergies As of Date: 12/04/2023 (Not on File) Date Reviewed: 12/04/2023 Reviewed by: Jordyn Nickerson MA - Fully Assessed Reason for Visit: Results [95] Prescriptions as of 12/04/2023 - trimethoprim-polymyxi n (POLYTRIM) 10,000 unit- 1 mg/mL ophthalmic solution Use 1 Drop in the left eye every 4 hours for 5 days. Problem List As Of Date: 12/04/2023 (None) Encounter Status:Closed by JORDYN NICKERSON on 12/04/23 [facility] COVID AND INFLUENZA A/B AND RSV NAAT, ROUTINEon 12-04-2023 SARS-CoV-2 (COVID-19) RNA LUCAS+probe Ql (Unsp spec) COVID 19 RESULT: Not detected The method used is RT-PCR or an equivalent NAAT method. Reference Range (the expected result in uninfected individuals): Not detected INFLUENZA A PCR: Not detected INFLUENZA B PCR: Not detected RSV PCR: Not detected Normal [facility] Comment on above: Performed By: #### C VFLRS #### [facility] CLIA [id number] [address] [place] [address] [place] Vital Signs Date Time Vital Sign Value Performing Clinician Nedra sanon 06-22-2022 18:00-0400 Body temperature 97.59 [degF] Joycelyn Wetzel PA-C Work Phone: [facility] 06-22-2022 18:00-0400 Body weight 79.47 kg Joycelyn Wetzel PA-C Work Phone: [facility] 06-22-2022 18:00-0400 Diastolic blood pressure 66 mm[Hg] Joycelyn Lorenzoy PA-C Work Phone: [facility] 06-22-2022 18:00-0400 Heart rate 57 /min Joycelyn Lorenzoy PA-C Work Phone: [facility] 06-22-2022 18:00-0400 Respiratory rate 16 /min Joycelyn Lorenzoy PA-C Work Phone: [facility] 06-22-2022 18:00-0400 SaO2% (BldA) [Mass fraction] 100 % Joycelyn Lorenzoy PA-C Work Phone: [facility] 06-22-2022 18:00-0400 Systolic blood pressure 118 mm[Hg] Joycelyn Lorenzoy PA-C Work Phone: [facility] Encounters Encounter Date Encounter Type Care Provider Facility Start: 12-04-2023 End: 12-04-2023 ambulatory [facility] Facility:[facility] Start: 06-22-2022 End: 06-22-2022 Patient encounter procedure Joycelyn Wetzel PA-C Work Phone: [facility] Comment on above: Scabies (Primary Dx) Plan of Treatment Date Care Activity Detail Author Start: 07-26-2022 Influenza vaccination INFLUENZA (#1) [facility] Start: 2013 PROSTATE CANCER SCRE ENING DISCUSSION PROSTATE CANCER SCREENING DISCUSSION [facility] Start: 2008 SHINGRIX VACCINE (1 of 2) SHINGRIX V ACCINE (1 of 2) [facility] Start: 2003 COLOGUARD (FIT-DNA) COLOGUARD (FIT-D NA) [facility] Start: 2003 Colonoscopy COLONOSCOPY [facility] Start: 2003 COLORECTAL CANCER SCREENING COLORECTAL CANCER SCREENING [facility] Start: [address] COLONOGRAPHY [facility] Start: 2003 DIABETES SCREEN DIABETES SCREEN [facility] Start: 2003 FECAL OCCULT BLOOD FECAL OCCULT BLOO D [facility] Start: 2003 SIGMOIDOSCOPY SIGMOIDOSCOPY [facility] Start: 1993 LIPID SCREEN LIPID SCREEN [facility] Start: 1977 Urine microalbumin profile DTAP,TDAP ,TD (1 - Tdap) [facility] Start: 1976 HEPATITIS C SCREENING HEPATITIS C SC REENING [facility] Start: 1976 HIV SCREENING HIV SCREENING [facility] Start: 1970 Adult depression scr eening assessment DEPRESSION SCREENING [facility] Start: 03-24-1959 COVID-19 VACCINE (#1) COVID-19 VACCI NE (#1) [facility] Payers Date Payer Category Payer Unknown ELMIRA LUDWIG PPO [id number] 2022-Present [phone] [facility] [id number] [place] [address] PPO [id number] 2022 Unknown [id number] Social History Date Type Detail Facility Start: 06-22-2022 Tobacco smoking stat us NDIS Never smoked tobacco [facility] Start: 06-22-2022 Tobacco use and exposure Smoke less tobacco non-user [facility] Start: 06-22-2022 Alcohol intake Lifetime non-d khadijah (finding) [facility] Start: 06-22-2022 History SDOH Alcohol Frequency 1 [facility] Start: 1960 Sex Assigned At Not on file [facility] Start: 06-12-2022 End: 06-22-2022 Exposure to SARS-CoV-2 (event) Not sure [facility] Progress note 12-04-2023 Note Date & Type Note Facility 12-04-2023 Note HNO ID: [id number] Author: ESTELITA ROLLINS APRN.GINI Service: ? Author Type: Nurse Practitioner Type: Progress Notes Filed: 12/04/2023 07:38 Note Text: This note was created using [employer]cast[employer]. Subjective Mike South is a 63 year old male. HPIsore throat since Saturday, fever 100, chills, and the left eye crusted started today. Slight cough and congestion. Using OTC pain relievers and cough/cold medication. Review of Systems Constitutional: Positive for chills and fever. HENT: Positive for congestion, sinus pressure and sore throat. Eyes: Positive for discharge and redness. Neurological: Positive for headaches. Objective BP 134/72 Pulse 94 Temp 36.8 ?C (98.3 ?F) Resp 21 Wt 75.8 kg (167 lb) SpO2 97% Physical Exam HENT: Right Ear: Tympanic membrane normal. Left Ear: External ear normal. Nose: Congestion present. Mouth/Throat: Mouth: Mucous membranes are moist. Pharynx: Posterior oropharyngeal erythema present. Eyes: General: Left eye: Discharge present. Cardiovascular: Rate and Rhythm: Normal rate. Pulmonary: Breath sounds: Normal breath sounds. Skin: General: Skin is warm and moist. Neurological: Mental Status: He is alert. Assessment and Plan ASSESSMENT/PLAN: 1. Sore throat - ICD9: 462, ICD10: J02.9 (primary diagnosis) - COVID AND INFLUENZA A/B AND RSV NAAT, ROUTINE Will notify patient of test results. 2. Acute bacterial conjunctivitis of left eye - ICD9: 372.03, ICD10: H10.32 Bacterial - see medication orders - course and contagiousness issues discussed, including hand washing. - Instructed to call if high fever, development of periorbital redness or swelling, eye pain, visual changes, concerns or if symptoms persist. Estelita Rollins APRN.HEAVY EQUIPMENT SALES MANAGER Medical Decision Making: Problems: Low: Acute, uncomplicated illness or injury Data: Unique test(s) ordered: 3+ Risk: Low: Low risk from testing/treatment Moderate: Drug management Medical Decision Making Level: 4 - Moderate [facility] History of Present illness Narrative 06-22-2022 Joycelyn Wetzel PA-C - 06/22/2022 6:30 PM EDT Note Date & Type Note Facility 06-22-2022 History of Presen t illness Narrative This note was created using [employer]ill[employer]. Subjective Mike South is a 61 year old male. HPI Patient presents with over a week of rash on the webs on his hands and finger, thigh and legs. He recently travelled to [facility] and [place] and stayed in some hotels and other various family members homes. He thinks maybe he was into some poison malcolm but usually does react to it as well. His started to get the rash two days ago as well. Review of Systems Constitutional: Negative. HENT: Negative. Respiratory: Negative. Cardiovascular: Negative. Gastrointestinal: Negative. Genitourinary: Negative. Skin: Positive for rash. All other systems reviewed and are negative. No past medical history on file. Current Outpatient Medications Medication Sig Dispense Refill permethrin (ELIMITE) 5 % cream Apply 1 application to affected area one time only for 1 dose. massage into skin from neck to feet, leave on 8-12hrs, wash off; Info: repeat 2wks if live mites persist. Itching may persist after effective treatment. 60 g 1 predniSONE (DELTASONE) 20 mg tablet Take 2 tablets by mouth once daily for 5 days. 10 tablet 0 hydrOXYzine HCl (ATARAX) 25 mg tablet Take 1-2 tablets by mouth three times daily as needed for itching/rash. 30 tablet 0 No current facility-administered medications for this visit. No past surgical history on file. No family history on file. Social History Tobacco Use Smoking status: Never Smoker Smokeless tobacco: Never Used Substance Use Topics Alcohol use: Never Drug use: Never Objective BP 118/66 Pulse (!) 57 Temp 36.4 C (97.6 F) Resp 16 Wt 79.5 kg (175 lb 3.2 oz) SpO2 100% Physical Exam Vitals reviewed. Constitutional: Appearance: Normal appearance. HENT: Head: Normocephalic and atraumatic. Skin: General: Skin is warm and dry. Comments: Patient has multiple erythematous small papules on left inner thigh, linear small papules on finger web spaces and fingers of both hands. No petechiae or purpura. No vesicles. Neurological: Mental Status: He is alert. Assessment and Plan ASSESSMENT/PLAN: 1. Scabies - ICD9: 133.0, ICD10: B86 - Apply Elimite neck down after shower over night. Wash off in a.m. Repeat in 1 week times one. - Itching and bumps may continue for some weeks even though the mite has been removed. - Wash all clothes and put shoes and items that can not be washed in a sealed bag for 3 days. - Follow up with PCP if no improvement in 3-4 weeks after treatment. Joycelyn Wetzel PA-C documented in this encounter [facility] Evaluation note Note Date & Type Note Facility Evaluation note Diagnosis Scabies- Primary documented in this encounter [facility] Summary Purpose Family History No Family History Records Found Advance Directives No Advanced Directives Records Found Additional Source Comments Source Comments (unrecognize d section and content) In the event this informatio n is protected by the Federal Confidentiality of Alcohol and Drug Abuse Patient Records regulations: The Federal rules restrict any use of the information to criminally investigate or prosecute any alcohol or drug abuse patient.[facility] Reason for Visit (unrecogniz ed section and content) Reason Comments Insect Bite recent travel rednes s, irritation web of fingers, thigh, legs, hands (unrecognized sect ion and content) No Status Records Found INFORMATION SOURCE (unrecogn ized section and content) DATE CREATED AUTHOR 12/07/2023 [facility] FOR RECORDS PERTAINING TO PATIENTS WHO ARE OR HAVE BEEN ENROLLED IN A CHEMICAL DEPENDENCY/SUBSTANCEABUSE PROGRAM, SOME INFORMATION MAY BE OMITTED. This clinical summary was aggregated from multiple sources. Caution should be exercised in using it in the provision of clinical care. This summary normalizes information from multiple sources, and as a consequence, information in this document may materially change the coding, format and clinical context of patient data. In addition, data may be omitted in some cases. CLINICAL DECISIONS SHOULD BE BASED ON THE PRIMARY CLINICAL RECORDS. [facility] [employer] [facility]. provides no warranty or guarantee of the accuracy or completeness of information in this document.
== END | disposition home or self-care (01) ==
LOC: LAB 16:00
PROVIDERS: PCP Family Medicine; Referring Provider Urology; Visit Provider Urology
DX: C61 Malignant neoplasm of prostate (principal)
CPT/HCPCS: 36415; 84153

== ENCOUNTER 2024-12-04 10:51 | Emergency (ER) | payer BC, SELFPAY ==
[2024-12-04 10:51] VITALS: BP 169/99; PULSE 61; RESP 16; TEMP 36.4; O2SAT 100; BMI 27.8
--- NOTE | 2024-12-04 11:08 | EDS_ITS ---
HPI History of Present Illness Chief Complaint: Nosebleed Informant: patient and spouse/S.O. Narrative Narrative: 64-year-old male spontaneous nosebleed 3 to 4 hours ago mostly left side, swallowing some blood, he takes no antiplatelet or anticoagulant medications; we discussed the aspirin is on his list and he does not take it daily. He said this happened 2.5-3 weeks ago while he was driving with his significant other to [facility]. He states subsequently he and his both contracted COVID and now they are over that but he was blowing his nose a lot during that. He denies any nasal injury. He denies any symptoms of anemia. Patient states prior to arrival holding pressure on his nose was helping temporarily. [facility] Medical History (Updated 12/04/24 @ 12:[address] Rusty Lyons MD) Prostate cancer Medical History no medical history no medical history Home Medications ?Medication ?Instructions ?Recorded ?Last Taken ?Type acetaminophen 500 mg tablet 500 - 1,000 mg PO Q6H PRN PRN Pain 02/09/21 Unknown History 1-10 Or Fever aspirin 325 mg tablet,delayed 325 mg PO Q4H PRN PRN Pain 1-10 Or 02/09/21 Unknown History release Fever meloxicam 15 mg tablet 15 mg PO PRN PRN Pain 1-10 Or Fever 02/09/21 Unknown History Allergy/AdvReac Type Severity Reaction Status Date / Time No Known Allergies Allergy Verified 12/04/24 10:53 Surgical History (Updated 12/04/24 @ 11:19 by Josiane Agustin) S/P rotator cuff repair Social History Smoking Status: Never smoker ROS ROS ED Constitutional Constitutional ED: Denies chills or fever(s) ENT ENT ED: Denies epistaxis or facial pain Cardiovascular Cardiovascular: Denies chest pain, lightheadedness or syncope Respiratory/Chest Respiratory/Chest: Denies dyspnea Gastrointestinal Gastrointestinal: Denies nausea or vomiting EXAM Physical Exam Const Vital Signs: 12/04/24 10:51 Temperature 97.6 F L Temperature Source Oral Pulse Rate 61 Respiratory Rate 16 Blood Pressure 169/99 H Blood Pressure Mean 122 Pulse Ox 100 Oxygen Delivery Method Room Air Positive well nourished and well developed General Appearance ED: well developed and NAD HEENT HEENT Narrative: There is some blood in the posterior pharynx but no active bleeding. There are traces of blood in both anterior nares, but there is no visible obvious source of the bleeding on either septum. There is no septal hematoma or perforation. Patient is moving air well through both sides are now. Eyes PERRL and EOMs intact bilaterally Resp normal respiratory effort Neuro oriented x3, CN's II-XII intact bilaterally, no sensory deficits noted and gait normal Motor Exam: strength 5/5 throughout Psych mental status grossly normal Skin no rashes or lesions noted and no wounds MDM MDM MDM Narrative Medical decision making narrative: Epistaxis care: Patient evacuated his nasal cavity by blowing his nose, there is very little blood or clot present and there was no recurrent bleeding. I then instilled atomized Angely solution 1 cc up each nostril to the point where he stuffed it down into his posterior pharynx, we observed him for half an hour there was no recurrent bleeding he did well. Rechecked his blood pressure, it is 153/84. No emergent treatment of that needed, he can follow up for a recheck. We discussed packing his nose he declines at this time we discussed reasons to return, he is comfortable with that plan and I sent him home with the rest of small amount of Angely mix. Discharge Plan Triage Chief Complaint: Nosebleed ED Provider: Rusty Lyons Dx/Rx/DC Orders Clinical Impression: Acute anterior epistaxis, Single episode of hypertension Instructions: ED Epistaxis (Adult) Prescriptions: No Action meloxicam 15 MG tablet 15 mg PO PRN PRN (Reason: Pain 1-10 Or Fever) acetaminophen 500 MG tablet 500 - 1,000 mg PO Q6H PRN PRN (Reason: Pain 1-10 Or Fever) aspirin 325 MG tablet 325 mg PO Q4H PRN PRN (Reason: Pain 1-10 Or Fever) Primary Care Provider: Gustavo Garcia Referrals: Gustavo Garcia MD [Primary Care Provider] - (For blood pressure recheck at some point in the next week or so) Darci Au MD [Med Staff - Active Staff] - As Needed (For recurrent bleeding) Activity Restrictions/Additional Instructions: Get any [id number] nasal decongestant spray containing oxymetazoline or phenylephrine (in ER solution). For moderate-severe nosebleed: 1 - gather supplies: nasal decongestant spray (above), cotton ball, box of tissues, garbage can, old towel that you can wrap around your chest/neck (to catch blood) 2 - soak a cotton ball in the nasal spray 3 - blow your nose, get all blood and clots out, keep chin down to prevent blood from going back into throat and forming clots 4 - after blowing the last time, quickly spray 2 sprays of the nasal spray into the affected side and sniff it back, immediately followed by twisting the soaked cotton ball into the front of your nose and then hold pressure with your fingers. 5 - if bleeding controlled, leave cotton ball in place for at least 20 min before checking to see if the bleeding is controlled by removing the cotton ball. If not able to control bleeding, always welcome to return to the ER for help. Print Language: Lithuanian Disposition Disposition: Home, Self Care
[2024-12-04] MEDS: Mixture 30 ML Bottle TOPICAL (11:17)
[2024-12-04 12:30] VITALS: BP 153/84; PULSE 55; RESP 16; TEMP 36.6; O2SAT 99
== END 2024-12-04 12:32 | disposition home or self-care (01) ==
PROVIDERS: Emergency Provider Emergency Medicine; PCP Family Medicine; Visit Provider Emergency Medicine
DX: R04.0 Epistaxis (principal); R03.0 Elevated blood-pressure reading, without diagnosis of hypertension; Z86.16 Personal history of COVID-19
CPT/HCPCS: 30901; 99282

== ENCOUNTER → 2024-12-21 | Outpatient (CLI) | payer BC, SELFPAY ==
--- NOTE | 2024-12-21 10:34 | RAD_ITS ---
STUDY: X-RAY CHEST REASON FOR EXAM: Male, 64 years old. COUGH. URGENT READ TECHNIQUE: PA and lateral views of the chest. COMPARISON: Comparison is made with prior study dated April 02, 2018. FINDINGS: Stable elevation of the right hemidiaphragm. Stable mild increased markings at the lung bases suggestive of scarring. No acute abnormality is seen. There is no demonstrated pleural abnormality. Normal size heart. Normal mediastinum and joshua. There is prominence of the pulmonary hilar arteries without peripheral pulmonary vascular congestion, suggesting pulmonary hypertension. Normal visualized aortic arch and descending thoracic aorta. Normal visualized thoracic spine. Normal visualized ribs, clavicles, and shoulders. There is no demonstrated abnormality of the visualized soft tissue structures of the upper abdomen. RAD/Chest PA and Lateral IMPRESSION: No acute abnormality is seen. Electronically Signed: Son Sandhu MD at 10:59 EST ,
[2024-12-21 12:09] LABS: Absolute Lymphocyte Count 1.07 X10^3/uL (0.83-4.51); Absolute Neutrophil Count 13.4 X10^3/uL (2.0-7.7); Basophil# 0.06 X10^3/uL; Basophil% 0.4 % (0-1); Eosinophil# 0.07 X10^3/uL; Eosinophils% 0.4 % (0-5); Hematocrit 39.6 % (40-54); Lymphocyte # 1.07 X10^3/ul (0.83-4.51); Lymphocyte % 6.9 % (19-41); Mean Corp Hgb Conc 32.8 g/dL (32-36); Mean Corpuscular Hgb 29.1 pg (27.0-32.0); Mean Corpuscular Volume 88.8 fL (80-94); Mean Platelet Vol. 9.2 fl (6.2-12.0); Monocyte# 0.89 X10^3/uL; Monocyte% 5.7 % (0-10); NRBC Flagged by Analyzer 0 % (0-5); Neutrophil # 13.37 X10^3/uL (2.7-7.7); Platelet Count 285 K/mm3 (150-450); RBC Distribution Width CV 12.9 % (11.6-14.6); RBC Distribution Width SD 42.3 fl (35.1-43.9); Red Blood Count 4.46 M/mm3 (4.6-6.2); White Blood Count 15.6 K/mm3 (4.4-11.0)
[2024-12-21 12:50] LABS: ALB/GLOB Ratio 0.9 RATIO (0.9-2.4); AST(SGOT) 10 U/L (15-37); Alanine Aminotransfer ALT/SGPT 15 U/L (16-61); Albumin, Serum 3.5 g/dL (3.2-5.0); Alkaline Phosphatase 69 U/L (45-117); Anion Gap 5 (5-15); BUN 12 mg/dL (7-18); BUN/Creat Ratio 13.5 RATIO (10-20); Calcium,Total 9.2 mg/dL (8.5-10.1); Chloride 107 mmol/L (98-107); Creatinine, Serum 0.89 mg/dL (0.70-1.30); EST Glomerular Filtration Rate 91 mL/min (>60); Est Glom Filt Rate - Afr Amer 110 mL/min (>60); Globulin 3.8 g/dL (2.2-4.2); Glucose 100 mg/dL (74-106); Potassium 4.2 mmol/L (3.5-5.1); Protein, Total 7.3 g/dL (6.4-8.2); Sodium Level 139 mmol/L (136-145)
== END | disposition home or self-care (01) ==
PROVIDERS: PCP Family Medicine; Referring Provider Nurse Practitioner Family; Visit Provider Nurse Practitioner Family
DX: R05.9 Cough, unspecified (principal); R50.9 Fever, unspecified
CPT/HCPCS: 36415; 71046; 80053; 85025

== ENCOUNTER 2024-12-23 13:50 | Outpatient (CLI) | payer BC, SELFPAY ==
[2024-12-23 18:53] LABS: BNP,B-Type NATRIURETIC PEPTIDE 38.5 pg/mL (0-100)
== END 2024-12-23 23:59 | disposition home or self-care (01) ==
LOC: MTLAB 13:51
PROVIDERS: PCP Family Medicine; Referring Provider Nurse Practitioner Family; Visit Provider Nurse Practitioner Family
DX: R05.9 Cough, unspecified (principal)
CPT/HCPCS: 36415; 83880

== ENCOUNTER → 2024-12-25 | Outpatient (CLI) | payer BC, SELFPAY ==
[2024-12-25 18:04] LABS: Absolute Lymphocyte Count 1.93 X10^3/uL (0.83-4.51); Absolute Neutrophil Count 5.9 X10^3/uL (2.0-7.7); Basophil# 0.06 X10^3/uL; Basophil% 0.7 % (0-1); Eosinophils% 2.2 % (0-5); Hematocrit 38.3 % (40-54); Hemoglobin 12.2 g/dL (13.0-16.5); Lymphocyte # 1.93 X10^3/ul (0.83-4.51); Lymphocyte % 21.7 % (19-41); Mean Corp Hgb Conc 31.9 g/dL (32-36); Mean Corpuscular Hgb 28.6 pg (27.0-32.0); Mean Corpuscular Volume 89.9 fL (80-94); Monocyte# 0.75 X10^3/uL; Monocyte% 8.4 % (0-10); NRBC Flagged by Analyzer 0 % (0-5); Neutrophil # 5.85 X10^3/uL (2.7-7.7); Neutrophil % 65.8 % (47-70); Platelet Count 376 K/mm3 (150-450); RBC Distribution Width CV 12.9 % (11.6-14.6); RBC Distribution Width SD 42.2 fl (35.1-43.9); Red Blood Count 4.26 M/mm3 (4.6-6.2); White Blood Count 8.9 K/mm3 (4.4-11.0)
== END | disposition home or self-care (01) ==
LOC: MTLAB 16:26
PROVIDERS: PCP Family Medicine; Referring Provider Nurse Practitioner Family; Visit Provider Nurse Practitioner Family
DX: D72.829 Elevated white blood cell count, unspecified (principal)
CPT/HCPCS: 36415; 85025

== ENCOUNTER → 2025-01-06 | Outpatient (CLI) | payer BC, SELFPAY ==
[2025-01-06 18:02] LABS: Absolute Lymphocyte Count 1.67 X10^3/uL (0.83-4.51); Absolute Neutrophil Count 3.4 X10^3/uL (2.0-7.7); Basophil# 0.04 X10^3/uL; Basophil% 0.7 % (0-1); Eosinophil# 0.12 X10^3/uL; Eosinophils% 2.1 % (0-5); Hematocrit 39.3 % (40-54); Hemoglobin 12.8 g/dL (13.0-16.5); Lymphocyte # 1.67 X10^3/ul (0.83-4.51); Lymphocyte % 29.6 % (19-41); Mean Corp Hgb Conc 32.6 g/dL (32-36); Mean Corpuscular Hgb 29.1 pg (27.0-32.0); Mean Corpuscular Volume 89.3 fL (80-94); Mean Platelet Vol. 9.8 fl (6.2-12.0); Monocyte% 7.1 % (0-10); NRBC Flagged by Analyzer 0 % (0-5); Neutrophil # 3.38 X10^3/uL (2.7-7.7); Platelet Count 285 K/mm3 (150-450); RBC Distribution Width CV 13.4 % (11.6-14.6); RBC Distribution Width SD 44.1 fl (35.1-43.9); White Blood Count 5.6 K/mm3 (4.4-11.0)
[2025-01-06 18:12] LABS: Hemoglobin A1c 5.6 % (3.8-5.6)
[2025-01-06 18:24] LABS: ALB/GLOB Ratio 1.1 RATIO (0.9-2.4); AST(SGOT) 19 U/L (15-37); Alanine Aminotransfer ALT/SGPT 25 U/L (16-61); Albumin, Serum 3.7 g/dL (3.2-5.0); Alkaline Phosphatase 67 U/L (45-117); Anion Gap 8 (5-15); BUN 12 mg/dL (7-18); BUN/Creat Ratio 12.2 RATIO (10-20); Calcium,Total 8.6 mg/dL (8.5-10.1); Chloride 106 mmol/L (98-107); Cholesterol 199 mg/dL (200); Creatinine, Serum 0.98 mg/dL (0.70-1.30); EST Glomerular Filtration Rate 81 mL/min (>60); Est Glom Filt Rate - Afr Amer 98 mL/min (>60); Globulin 3.5 g/dL (2.2-4.2); Glucose 140 mg/dL (74-106); High Density Lipoprotein 57 mg/dL; Potassium 3.5 mmol/L (3.5-5.1); Protein, Total 7.2 g/dL (6.4-8.2); Sodium Level 138 mmol/L (136-145); Triglycerides 89 mg/dL; Very Low Density Lipoprotein 18 mg/dL (5-40)
[2025-01-07 11:56] LABS: Ferritin 77 ng/mL (26-388); Iron 76 ug/dL (65-175); Iron Binding Capacity,Total 350 ug/dL (250-450); PERCENT IRON SATURATION 21.7 % (15.0-55.0)
== END | disposition home or self-care (01) ==
LOC: MFPLAB 16:22
PROVIDERS: PCP Family Medicine; Referring Provider Family Medicine; Visit Provider Family Medicine
DX: Z00.00 Encounter for general adult medical examination without abnormal findings (principal); D64.9 Anemia, unspecified; R73.09 Other abnormal glucose
CPT/HCPCS: 36415; 80053; 80061; 82728; 83036; 83540; 83550; 85025

== ENCOUNTER → 2025-01-09 | Outpatient (CLI) | payer BC, SELFPAY ==
--- NOTE | 2025-01-09 10:52 | US_ITS ---
PROCEDURE: THYROID REASON FOR EXAM: 64-year-old male, evaluation of possible nodular versus lipoma of the left neck. TECHNIQUE: Thyroid ultrasound COMPARISON: Thyroid ultrasound 04/25/2021. FINDINGS: Right thyroid lobe measures 4.1 x 1.5 x 1.3 cm. Left thyroid lobe measures 3.9 x 1.4 x 1.5 cm. Isthmus thickness is0.3 cm. Thyroid Size: Normal Background Echotexture: Normal Thyroid Nodules: None Focused ultrasound interrogation of the left mid anterior neck in the area of interest was performed. Lobular, encapsulated mass which is isoechoic to surrounding fat measuring 2.8 by 0.7 by 2.4 cm. 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 Reading Location: [id number]
== END | disposition home or self-care (01) ==
PROVIDERS: PCP Family Medicine; Referring Provider Family Medicine; Visit Provider Family Medicine
DX: R22.1 Localized swelling, mass and lump, neck (principal)
CPT/HCPCS: 76536

== ENCOUNTER → 2025-09-14 | Outpatient (CLI) | payer OTHER, SELFPAY ==
[2025-09-14 11:33] LABS: PSA,Total- Diagnostic 0.42 ng/mL (0.00-4.00); Vitamin B12 292 pg/mL (180-914)
== END | disposition home or self-care (01) ==
PROVIDERS: PCP Family Medicine; Referring Provider Urology; Visit Provider Urology
DX: D64.9 Anemia, unspecified (principal); R97.20 Elevated prostate specific antigen [PSA]
CPT/HCPCS: 36415; 82607; 84153